=== PATIENT | male | born 1955 | race Caucasian/White ===

== ENCOUNTER 2025-02-13 14:59 | Inpatient (IN) | payer MEDICARE ==
[~2025-02-13] VITALS: Ht 162.6 cm; Wt 83.2 kg
[2025-02-13 16:02] LABS: BASOPHILS % (AUTO) 0.4 % (0.0-2.0); EOSINOPHILS % (AUTO) 0.3 % (1.0-6.0); HEMATOCRIT 44.1 % (41-53); HEMOGLOBIN 14.9 g/dL (13.5-17.5); LYMPHOCYTES # (AUTO) 1.6 K/uL (1.0-4.8); LYMPHOCYTES % (AUTO) 22.1 % (22.0-44.0); MEAN CORPUSCULAR HEMOGLOBIN 31.9 pg (26.0-34.0); MEAN CORPUSCULAR HGB CONC 33.8 G/dL (31.0-37.0); MEAN CORPUSCULAR VOLUME 95 fL (80-100); MONOCYTES # (AUTO) 0.7 K/uL (0.1-1.0); MONOCYTES % (AUTO) 9.4 % (2.0-9.0); NEUTROPHILS # (AUTO) 4.9 K/uL (1.8-7.7); NEUTROPHILS % (AUTO) 67.8 % (40.0-70.0); PLATELET COUNT (AUTO) 194 K/uL (150-450); RED BLOOD CELL COUNT(AUTO) 4.67 MIL/uL (4.50-5.90); RED CELL DISTRIBUTION WIDTH 13.9 % (11.5-14.5); WHITE BLOOD COUNT (AUTO) 7.2 K/uL (4.5-11.0)
[2025-02-13 16:09] LABS: ANION GAP 8 mmol/L (8-16); CALCIUM, TOTAL 9.1 mg/dL (8.8-10.5); CARBON DIOXIDE 26 mmol/L (22-29); CHLORIDE 105 mmol/L (98-107); CREATININE 1.09 mg/dL (0.60-1.30); GLOMERULAR FILTR. RATE CALC > 60 mL/min (>60); GLUCOSE,RANDOM 119 mg/dL (70-110); POTASSIUM 3.8 mmol/L (3.5-5.1); SODIUM SERUM 139 mmol/L (136-145); UREA NITROGEN, BLOOD 15 mg/dL (7-18)
[2025-02-13 17:15] LABS: COVID AG,FIA SOURCE NASAL SWAB
[2025-02-13 17:45] LABS: SARS-COV2 (COVID) ANTIGEN,FIA Negative (Negative)
[2025-02-13] MEDS ORDERED: ZOLPIDEM TARTRATE 10 MG TABLET PO PRN (19:30)
[2025-02-13] MEDS ORDERED: LORazepam 2 MG TABLET PO PRN (19:30)
[2025-02-13] MEDS ORDERED: haloperidoL 5 MG TABLET PO PRN (19:30)
[2025-02-14 00:11] VITALS: BP 131/78; PULSE 83; RESP 17; TEMP 97.6; O2SAT 97
[2025-02-14 07:18] LABS: BASOPHILS % (AUTO) 0.2 % (0.0-2.0); EOSINOPHILS % (AUTO) 2.9 % (1.0-6.0); HEMATOCRIT 45.3 % (41-53); HEMOGLOBIN 15.4 g/dL (13.5-17.5); LYMPHOCYTES # (AUTO) 1.6 K/uL (1.0-4.8); LYMPHOCYTES % (AUTO) 25.9 % (22.0-44.0); MEAN CORPUSCULAR HGB CONC 33.9 G/dL (31.0-37.0); MEAN CORPUSCULAR VOLUME 95 fL (80-100); MONOCYTES # (AUTO) 0.6 K/uL (0.1-1.0); MONOCYTES % (AUTO) 9.8 % (2.0-9.0); NEUTROPHILS # (AUTO) 3.7 K/uL (1.8-7.7); NEUTROPHILS % (AUTO) 61.2 % (40.0-70.0); PLATELET COUNT (AUTO) 177 K/uL (150-450); RED BLOOD CELL COUNT(AUTO) 4.79 MIL/uL (4.50-5.90); RED CELL DISTRIBUTION WIDTH 13.5 % (11.5-14.5)
[2025-02-14 07:40] LABS: ALANINE AMINOTRANSFERASE 31 U/L (12-78); ALBUMIN 3.2 g/dL (3.4-5.0); ALKALINE PHOSPHATASE 74 U/L (46-116); ANION GAP 6 mmol/L (8-16); ASPARTATE AMINOTRANSFERASE 36 U/L (15-37); BILIRUBIN,TOTAL 0.7 mg/dL (0.1-1.0); CALCIUM, TOTAL 8.8 mg/dL (8.8-10.5); CARBON DIOXIDE 27 mmol/L (22-29); CHLORIDE 105 mmol/L (98-107); CHOL/HDL RATIO 2.2 (4.2-7.3); CHOLESTEROL 118 mg/dL (131-200); CREATININE 0.95 mg/dL (0.60-1.30); GLOMERULAR FILTR. RATE CALC > 60 mL/min (>60); GLUCOSE,RANDOM 132 mg/dL (70-110); HDL CHOLESTEROL 54 mg/dL (40-60); LDL CHOL (CALC.) 52 mg/dL (0-130); POTASSIUM 4.3 mmol/L (3.5-5.1); SODIUM SERUM 138 mmol/L (136-145); TOTAL PROTEIN, SERUM 6.4 g/dL (6.4-8.2); TRIGLYCERIDES 60 mg/dL (15-150); UREA NITROGEN, BLOOD 14 mg/dL (7-18)
[2025-02-14 08:00] LABS: FREE T4 (FREE THYROXINE) 0.88 ng/dL (0.76-1.46)
[2025-02-14] MEDS ORDERED: BENZOCAINE/MENTHOL [CEPACOL] LOZENGE PO PRN (08:15)
[2025-02-14] MEDS ORDERED: LOPERAMIDE HCL 2 MG CAPSULE PO PRN (08:15)
[2025-02-14] MEDS ORDERED: CloNIDine HCL 0.1 MG TABLET PO PRN (08:15)
[2025-02-14] MEDS ORDERED: DOCUSATE SODIUM 100 MG CAPSULE PO PRN (08:15)
[2025-02-14] MEDS ORDERED: ALBUTEROL SULFATE HFA 90 MCG/PUFF 8 GM INHALER IH PRN (08:15)
[2025-02-14] MEDS ORDERED: MAG HYDROX/ALUMINUM HYD/SIMETH ES 30 ML SUSPENSION UDCUP PO PRN (08:15)
[2025-02-14] MEDS ORDERED: BACITRACIN 28 GM OINTMENT TP PRN (08:15)
[2025-02-14] MEDS ORDERED: PETROLATUM,WHITE 28 GM JELLY TP PRN (08:15)
[2025-02-14] MEDS ORDERED: MAGNESIUM HYDROXIDE SUSPENSION 30 ML UDCUP PO PRN (08:15)
[2025-02-14] MEDS ORDERED: OMEPRAZOLE 20 MG CAPSULE PO PRN (08:15)
[2025-02-14] MEDS ORDERED: IBUPROFEN 600 MG TABLET PO PRN (08:15)
[2025-02-14] MEDS ORDERED: ONDANSETRON 4 MG TABLET PO PRN (08:15)
[2025-02-14] MEDS: FLUTICASONE/VILANTEROL 200-25 MCG/INH INHALER [14] IH SCH (09:33)
[2025-02-14] MEDS: MONTELUKAST SODIUM 10 MG TABLET PO SCH (09:34)
[2025-02-14] MEDS: lisinopriL 5 MG TABLET PO SCH (09:34)
[2025-02-14] MEDS: EZETIMIBE 10 MG TABLET PO SCH (20:25)
[2025-02-14] MEDS: ATORVASTATIN CALCIUM 40 MG TABLET PO SCH (20:25)
[2025-02-14 21:30] VITALS: BP 107/68; PULSE 80; RESP 18; TEMP 97.5; O2SAT 97
[2025-02-14 23:00] VITALS: BP 107/68; PULSE 80; RESP 18; TEMP 97.5; O2SAT 97
[2025-02-15 13:44] VITALS: BP 107/72; PULSE 83; RESP 18; TEMP 98.2; O2SAT 97
[2025-02-15] MEDS: ACETAMINOPHEN 325 MG TABLET PO PRN (13:44)
[2025-02-15 14:44] VITALS: RESP 16
[2025-02-15 23:00] VITALS: BP 111/74; PULSE 92; RESP 18; TEMP 97.8; O2SAT 100
[2025-02-15 23:05] VITALS: BP 111/74; PULSE 92; RESP 17; TEMP 97.8; O2SAT 95
[2025-02-16 09:40] VITALS: BP 112/76; PULSE 78; RESP 18; TEMP 97.2; O2SAT 98
[2025-02-16 10:40] VITALS: RESP 16
[2025-02-16] MEDS ORDERED: MONT-35 PO (15:00)
[2025-02-16] MEDS ORDERED: FLUT1BLS IH (15:00)
[2025-02-16] MEDS ORDERED: ATOR40TA28 PO (15:00)
[2025-02-16] MEDS ORDERED: EZET10TA57 PO (15:00)
[2025-02-16] MEDS ORDERED: LISI-892 PO (15:00)
== END 2025-02-16 17:00 | disposition home or self-care (01) | DRG 885 ==
LOC: EMS 15:02 → 3EI 22:09
PROVIDERS: ADMIT Psychiatry & Neurology Psychiatry; ATTEND Psychiatry & Neurology Psychiatry
DX: F29 Unspecified psychosis not due to a substance or known physiological condition (principal); F20.9 Schizophrenia, unspecified; F41.9 Anxiety disorder, unspecified; J45.909 Unspecified asthma, uncomplicated; E66.9 Obesity, unspecified; G47.00 Insomnia, unspecified; I10 Essential (primary) hypertension; I25.10 Atherosclerotic heart disease of native coronary artery without angina pectoris; Z20.822 Contact with and (suspected) exposure to COVID-19; K21.9 Gastro-esophageal reflux disease without esophagitis; Z68.31 Body mass index [BMI] 31.0-31.9, adult; Z95.5 Presence of coronary angioplasty implant and graft; Z79.899 Other long term (current) drug therapy; I25.2 Old myocardial infarction
CPT/HCPCS: 80048; 80053; 80061; 83036; 84436; 84439; 85025; 99285; G0480